=== PATIENT | female | born 1950 | race Caucasian/White ===

== ENCOUNTER 2016-11-28 09:36 | Day surgery (SDC) | payer MEDICARE, MEDICAID ==
[~2016-11-28] VITALS: Ht 157.5 cm; Wt 68.0 kg
[~2016-11-28 09:36] MED LIST: BENTYL10 M1 PO; BENZONATATE100 MG PO; CLARITIN 10MG T10 MG PO; CYCLOBENZAPRINE10 M3 PO; LISINOPRIL HCTZ1 TAB PO; LISINOPRIL/HCTZ1 TA1 PO; LOSARTAN POTAS100 MG PO; MEDROL 4MG. DOSE4 MG PO; METOPROLOL25 MG PO; NASONEX0.05 MG/AC NS; NEXIUM40 MG PO; SYMBICORT1 AER IH; SYNTHROID0.088 M3 PO; TRAMADOL50 M1 PO; ULTRAM50 MG PO; VENTOLIN H0.09 MG/AC IH; VICODIN 5/500 T1 TAB PO; ZANTAC 150150 MG PO
--- NOTE | 2016-11-28 11:59 | Operative Note ---
Colonoscopy ([facility]) Procedure date: 11/28/16 Date of : 52 Procedure:Colonoscopy Colonoscopy with cold and hot snare polypectomy and submucosal injection of Jasmin ink and saline Indications: Mrs. Cullen is a 66-year-old female with recent RIGHT upper quadrant abdominal pain. The patient has previously had cholecystectomy. The patient also has had some elevated liver chemistries with alkaline phosphatase 117 which was only slightly elevated. Her common bile duct was 8 mm. Has helped some. The patient had gone to the emergency department at [facility] had small bowel series which was normal. She also had a CAT scan. The patient does have a history of very advanced adenomatous colon polyps and possibly malignant polyps and underwent RIGHT hemicolectomy 8 or 9 years ago. The patient underwent a colonoscopy by Dr. Idris Ricketts M.D. in May 2014 and only had a single polyp removed. The patient does state that she has had between 13 and 17 polyps removed sometimes at each colonoscopy. She reports a 15-20 pound weight loss over the last 6-12 months. She reports no rectal bleeding or family history of colon cancer. Performing Provider: Claudia Adler MD Referrring Provider: Tomas Harrison M.D. Sedation: MAC sedation Procedure: Prior to the procedure, a history and physical exam was performed, and patient medications and allergies were reviewed. The risks and benefits of the procedure and the sedation options and risks were discussed with the patient. All questions were answered and informed consent was obtained. Patient identification and proposed procedure were verified by the physician and the nurse. The patient was placed in a left lateral decubitus position. Throughout the procedure, the patient's blood pressure, pulse, and oxygen saturations were monitored continuously. Findings: On digital rectal examination there was normal rectal tone. There were no external hemorrhoids. The colonoscope was introduced through the anal canal to the rectum and advanced to the ileocolonic anastomosis. The scope was advanced a short distance into the ileum. This was normal. The scope was then withdrawn into the colon. There were 7 colon polyps identified in the transverse 2, descending 3 and sigmoid 2. These ranged in size from 5-15 mm and most were removed via cold snare polypectomy. The largest polyp in the sigmoid colon was on both parts of the haustral fold and more wide base. The base of this was injected with Jasmin ink and saline using a submucosal needle injector. This was then removed in piecemeal by snare cautery. The remaining cecum, ascending, transverse, descending, sigmoid and rectum were grossly normal. There were no other mucosal abnormalities identified. Upon retroflexion within the rectum there were grade 1-2 internal hemorrhoids. Impressions: 1. Colonic polyps 7 (largest polyp encompassing 15-17 mm in sigmoid colon behind haustral fold with this one removed via submucosal injection and snare cautery) 2. Grade 1 internal hemorrhoids Recommendations: This patient has a history of a very advanced adenomatous polyps. I would recommend genetic testing. I would encourage her to have her children screened. I will plan annual surveillance colonoscopy. I do feel that her RIGHT upper quadrant abdominal pain may have been sphincter of Oddi dysfunction or biliary in nature based upon the biliary colic and elevated alkaline phosphatase. If this recurs, would consider ERCP. Complications: None EBL (ml): 0 at [id number]
[2016-11-28 15:30] VITALS: BP 113/88
== END 2016-11-28 12:45 | disposition home or self-care (01) ==
LOC: SDC 09:36
PROVIDERS: Internal Medicine Gastroenterology
PROC: 0DBL8ZX Excision of Transverse Colon, Via Natural or Artificial Opening Endoscopic, Diagnostic (ICD-10-PCS; 2016-11-28)
PROC: 0DBN8ZX Excision of Sigmoid Colon, Via Natural or Artificial Opening Endoscopic, Diagnostic (ICD-10-PCS; 2016-11-28)
PROC: 3E0H8GC Introduction of Other Therapeutic Substance into Lower GI, Via Natural or Artificial Opening Endoscopic (ICD-10-PCS; 2016-11-28)
PROC: 0DBM8ZX Excision of Descending Colon, Via Natural or Artificial Opening Endoscopic, Diagnostic (ICD-10-PCS; principal; 2016-11-28 10:30)
DX: Z09 Encounter for follow-up examination after completed treatment for conditions other than malignant neoplasm (principal); D12.4 Benign neoplasm of descending colon; D12.5 Benign neoplasm of sigmoid colon; D12.3 Benign neoplasm of transverse colon; Z87.19 Personal history of other diseases of the digestive system; Z79.899 Other long term (current) drug therapy; K64.0 First degree hemorrhoids

== ENCOUNTER → 2016-12-15 | Day surgery (SDC) | payer MEDICARE, MEDICAID ==
[~2016-12-15] VITALS: Ht 157.5 cm; Wt 66.2 kg
[2016-12-15 07:58] VITALS: BP 113/72
== END ==
LOC: SDC 06:09
PROC: 0CJS8ZZ Inspection of Larynx, Via Natural or Artificial Opening Endoscopic (ICD-10-PCS; principal; 2016-12-15)
DX: Z53.09 Procedure and treatment not carried out because of other contraindication (principal); R49.0 Dysphonia; R06.2 Wheezing; F41.9 Anxiety disorder, unspecified

== ENCOUNTER 2017-01-03 07:20 | Day surgery (SDC) | payer MEDICARE, MEDICAID ==
[2017-01-03 08:01] LABS: HEMOGLOBIN 17.9 g/dL (12.2-16.2); LYMPH # 4.2 K/mm3 (0.7-4.5); LYMPH % 36.1 % (10-50.0)
[2017-01-03 08:15] LABS: BUN 15 mg/dL (7-18)
[2017-01-03 08:16] LABS: GFR (ESTIMATED) 72 ML/MIN (59-)
--- NOTE | 2017-01-03 10:11 | RADIOLOGY REPORT PS360 ---
CARDIAC CATHETERIZATION DATE OF CATHETERIZATION:01/03/2017 9:17 AM PROCEDURES: 1. Left heart catheterization 2. Left ventriculogram 3. Selective coronary angiogram INDICATION FOR TEST: 1. Abnormal Myoview 2. Preoperative evaluation Informed consent was obtained prior to the procedure. COMPLICATIONS: None ESTIMATED BLOOD LOSS: Less than 10 ml. TECHNIQUE: One percent lidocaine used to anesthetize the right anterior aspect of the wrist. The right radial artery was accessed via the Seldinger technique. A 6 Sinhala sheath was placed in the right radial artery. 2.5 mg of verapamil, 800 mcg of nitroglycerin and 5000 U Heparin were given through the arterial sheath. The trap catheter was also used to perform left heart catheterization and left ventriculography. At the end of the procedure the patient was transferred to the post-op holding area in stable condition for arterial sheath removal. ANGIOGRAPHIC RESULTS: 1. The left main artery normal 2. The left anterior descending artery normal 3. The circumflex artery normal and dominant 4. The right coronary artery normal nondominant 5. The BACA ventriculogram reveals 65% 6. The left ventricular end-diastolic pressure elevated at 30 mmHg IMPRESSION: 1. Normal coronary arteries. 2. Normal ejection fraction 3. Elevated LVEDP consistent with diastolic dysfunction PLAN: 1. Patient is a low and acceptable risk to proceed with focal cord surgery 2. Low-dose diuretics would help patient's symptoms by decreasing EDP 3. Treatment of diastolic dysfunction 4. Risk factor modification
[2017-01-03 13:20] VITALS: BP 145/87
== END 2017-01-03 13:40 | disposition home or self-care (01) ==
LOC: CATHLAB 07:20
PROVIDERS: Internal Medicine
PROC: B2111ZZ Fluoroscopy of Multiple Coronary Arteries using Low Osmolar Contrast (ICD-10-PCS; principal; 2017-01-03 08:30)
PROC: B2151ZZ Fluoroscopy of Left Heart using Low Osmolar Contrast (ICD-10-PCS; principal; 2017-01-03 08:30)
PROC: 4A023N7 Measurement of Cardiac Sampling and Pressure, Left Heart, Percutaneous Approach (ICD-10-PCS; principal; 2017-01-03 08:30)
DX: R94.39 Abnormal result of other cardiovascular function study (principal); I50.30 Unspecified diastolic (congestive) heart failure; Z72.0 Tobacco use; R06.09 Other forms of dyspnea; I20.9 Angina pectoris, unspecified
CPT/HCPCS: C1725; C1769; J1644; Q9967

== ENCOUNTER → 2017-01-10 | Outpatient (CLI) | payer MEDICARE, MEDICAID ==
[2017-01-10 12:43] LABS: BILIRUBIN, INDIRECT 0.24 mg/dL (0-0.9); BUN 15 mg/dL (7-18)
[2017-01-10 12:44] LABS: GFR (ESTIMATED) 56 ML/MIN (59-)
== END ==
LOC: LAB 10:22
PROVIDERS: Internal Medicine Cardiovascular Disease
DX: I50.30 Unspecified diastolic (congestive) heart failure (principal); R06.00 Dyspnea, unspecified; Z86.73 Personal history of transient ischemic attack (TIA), and cerebral infarction without residual deficits; Z72.0 Tobacco use

== ENCOUNTER → 2017-01-20 | Outpatient (CLI) | payer MEDICARE, MEDICAID ==
[2017-01-20 15:58] LABS: BUN 11 mg/dL (7-18)
[2017-01-20 16:30] LABS: GFR (ESTIMATED) 56 ML/MIN (59-)
== END ==
LOC: LAB 14:05
PROVIDERS: Internal Medicine Cardiovascular Disease
DX: I50.30 Unspecified diastolic (congestive) heart failure (principal); R06.00 Dyspnea, unspecified; Z86.73 Personal history of transient ischemic attack (TIA), and cerebral infarction without residual deficits; Z72.0 Tobacco use

== ENCOUNTER → 2017-02-06 | Outpatient (CLI) | payer MEDICARE, MEDICAID ==
[2017-02-06 18:13] LABS: BUN 15 mg/dL (7-18)
[2017-02-06 18:16] LABS: GFR (ESTIMATED) 56 ML/MIN (59-)
== END ==
LOC: LAB 15:58
PROVIDERS: Internal Medicine Cardiovascular Disease
DX: E87.5 Hyperkalemia (principal)